=== PATIENT | male | born 1955 | race Caucasian/White ===

== ENCOUNTER 2016-11-07 07:44 | Day surgery (SDC) | payer BC ==
[2016-11-03 09:55] VITALS: BMI 34.9
[~2016-11-07 07:44] MED LIST: LACTATED RINGERS 1,000 ML IV SCH; LIDOCAINE 1% 20 ML VIAL (10MG/ML) FOR IV START INTRADERMA PRN
[2016-11-07 08:12] VITALS: TEMP 98.6
[2016-11-07] MEDS ORDERED: PROPOFOL 10 MG/ML 20 ML VIAL IV ONE (08:45)
--- NOTE | 2016-11-07 09:03 | P.PCN ---
Date of Procedure: 11/07/16 Procedure(s) Performed: Procedure: Esophagogastroduodenoscopy and biopsy. Preoperative diagnosis: History of Mcintyre's esophagus. Postoperative diagnosis: Long segment of Mcintyre's esophagus, biopsies obtained in 4 different quadrants at 2 different levels. Preparation and sedation: Was provided by anesthesia. Brief clinical history: The patient is a 61-year-old male with history of Mcintyre's esophagus. His last surveillance exam was in March 2014 and he had no evidence of dysplasia at that time. The patient does not have any symptoms and this is part of his surveillance. Procedure: With the patient on his left lateral decubitus position and after informed consent and adequate sedation, I passed the Olympus-GIF 160 video upper endoscope through the cricopharyngeus down the esophagus. The leti-GE junction was irregular and it started at around 30 cm from the incisors and the tubular esophagus continued for another 9-10 cm before we encounter a sliding hiatal hernia which measured around 2 cm. The esophagus proximal and distal to the leti-GE junction did not show any erosions or ulcers or any tumors. There were no strictures. The endoscope was then advanced to the rest of the stomach which was insufflated with air and inspected in detail including the retroflex view in the cardia. Finally the endoscope was passed through the pylorus into the duodenum. Pyloric channel, duodenal bulb, post bulbar area and descending duodenum appeared within normal limits. The stomach also appeared within normal limits. No biopsies were indicated in the duodenum or in the stomach. Then I proceeded to obtain multiple biopsies from the esophagus from 4 different quadrants at 2 different levels, 32 and 37 cm from the incisors. The patient tolerated the procedure well Plan: The patient was reassured. Will await biopsy results. I anticipate repeating this exam in 2-3 years. He will continue antireflux diet and measures. He will continue PPI therapy and his follow-up with you as planned.
[2016-11-07 09:06] VITALS: RESP 18
[2016-11-07 09:31] VITALS: BP 1313/86; PULSE 81
== END 2016-11-07 09:47 | disposition home or self-care (01) ==
LOC: ORWHC2ENDO 07:44
DX: K22.70 Barrett's esophagus without dysplasia (principal); I10 Essential (primary) hypertension; E78.5 Hyperlipidemia, unspecified; K21.9 Gastro-esophageal reflux disease without esophagitis; Z79.82 Long term (current) use of aspirin; Z79.899 Other long term (current) drug therapy
CPT/HCPCS: 88305; 43239; J2704

== ENCOUNTER 2017-07-13 19:52 | Emergency (ER) | payer BC ==
[2017-07-13 20:05] VITALS: BP 181/98; PULSE 90; RESP 16; TEMP 98.9
[2017-07-13] MEDS ORDERED: DIPH,PERTUS(ACELL)TETVAC-LF 0.5 ML VIAL IM ONE (20:56)
--- NOTE | 2017-07-13 21:07 | ED ---
Wound/Laceration HPI - General Chief Complaint: Wound/Laceration Stated Complaint: Eyebrow/Lac Time Seen by Provider: 07/13/17 20:56 Source: patient Mode of arrival: ambulatory Limitations: no limitations - History of Present Illness Initial Comments: this patient is 62-year-old man who states that he sustained a laceration to the right brow of his face while he was using a tool to clean out a laundry shoot above his head, and the tool fell striking him in the face. The patient states that he did not have loss of consciousness. He has no headache, no change in his vision, no neurologic symptoms, no neck pain or any other symptoms. Initially the patient's stated that his tetanus status was not current, but the patient subsequently remembered that he had a tetanus shot before he had taken a trip about 5 or 6 years ago. Onset/Timin -: hour(s) Location: face Place: home Patient Tetanus UTD: Yes Context: accidental Associated Symptoms: none - Related Data Home Medications Medication Instructions Recorded Confirmed Aspirin 81 mg PO DAILY 03/27/14 11/07/16 Fluticasone/Salmeterol [Advair 1 puff INHALATION BID PRN 03/27/14 11/07/16 250-50 Diskus] Hydrochlorothiazide [Hydrodiuril] 25 mg PO DAILY 03/27/14 11/07/16 Pantoprazole Sodium [Protonix] 40 mg PO DAILY 03/27/14 11/07/16 Trandolapril [Mavik] 4 mg PO DAILY 03/27/14 11/07/16 Verapamil HCl [Verapamil ER] 240 mg PO DAILY 03/27/14 11/07/16 Atorvastatin [Lipitor] 20 mg PO HS 07/13/17 07/13/17 Allergies Allergy/AdvReac Type Severity Reaction Status Date / Time No Known Allergies Allergy Verified 07/13/17 21:15 Review of Systems ROS Statement: Those systems with pertinent positive or pertinent negative responses have been documented in the HPI. ROS Other: All systems not noted in ROS Statement are negative. Constitutional: Denies: fever, chills Eyes: Denies: eye pain, vision change Neurological: Denies: headache, weakness, numbness, confusion, abnormal gait Hematological/Lymphatic: Denies: easy bleeding Past Medical History Past Medical History: Asthma, GERD/Reflux, Hyperlipidemia, Hypertension, Sleep Apnea/CPAP/BIPAP Additional Past Medical History / Comment(s): SLEEP APNEA- DOES NOT USE MACHINE. ? SPIVEY'S ESOPHAGUS History of Any Multi-Drug Resistant Organisms: None Reported Past Surgical History: No Surgical Hx Reported Additional Past Surgical History / Comment(s): COLONOSCOPY;EGD Past Anesthesia/Blood Transfusion Reactions: No Reported Reaction Past Psychological History: No Psychological Hx Reported Smoking Status: Former smoker Past Alcohol Use History: Occasional Past Drug Use History: None Reported - Past Family History Mother Family Medical History: No Reported History General Exam Limitations: no limitations General appearance: alert, in no apparent distress Eye exam: Present: normal appearance, PERRL, EOMI, other (there is an approximately 3 cm laceration to the right brow). Absent: scleral icterus, conjunctival injection Neck exam: Present: full ROM. Absent: tenderness Neurological exam: Present: alert, normal gait Skin exam: Present: warm, dry, other (laceration as above) Course Vital Signs 07/13/17 20:00 Temperature 98.9 F Pulse Rate 90 Respiratory 16 Rate Blood Pressure 181/98 O2 Sat by Pulse 96 Oximetry Procedures - Laceration Laceration #1 Consent Obtained: verbal consent Time Out Performed: Yes Indication: laceration Site: face Description: linear Depth: simple, single layer Anesthetic Used: lidocaine 1% Amount (mls): 6 Type of Sutures: nylon Size of Sutures: 6-0 Technique: simple, interrupted Patient Tolerated Procedure: well, no complications Disposition Clinical Impression: Laceration Disposition: HOME SELF-CARE Condition: Good Instructions: Care For Your Stitches (ED), Laceration (ED) Referrals: Mode Ochoa MD [Primary Care Provider] - 1-2 days
== END 2017-07-13 21:30 | disposition home or self-care (01) ==
LOC: EC 19:52
DX: S01.111A Laceration without foreign body of right eyelid and periocular area, initial encounter (principal); K21.9 Gastro-esophageal reflux disease without esophagitis; E78.5 Hyperlipidemia, unspecified; I10 Essential (primary) hypertension; Z87.891 Personal history of nicotine dependence; Z79.82 Long term (current) use of aspirin; Z79.899 Other long term (current) drug therapy; W20.8XXA Other cause of strike by thrown, projected or falling object, initial encounter
CPT/HCPCS: 12013; 99282

== ENCOUNTER 2020-03-10 07:14 | Day surgery (SDC) | payer BC ==
[2020-03-09 10:03] VITALS: BMI 32.8
[~2020-03-10 07:14] MED LIST changes: +LIDOCAINE 1% (10MG/ML) FOR IV START INTRADERMA PRN; -LIDOCAINE 1% 20 ML VIAL (10MG/ML) FOR IV START INTRADERMA PRN
[2020-03-10 07:37] VITALS: RESP 16; TEMP 96.6
[2020-03-10 07:48] LABS: Glucose,Whole Blood 172 mg/dL (75-99)
[2020-03-10] MEDS ORDERED: LIDOCAINE 1% INJ 10MG/ML (20 ML MDV) ONE (07:57)
[2020-03-10] MEDS ORDERED: PROPOFOL 10 MG/ML 20 ML VIAL IV ONE (07:57)
[2020-03-10] MEDS ORDERED: IV FLUID CONTINUATION 1,000 ML IV ONE (08:22)
--- NOTE | 2020-03-10 08:30 | P.PCN ---
Date of Procedure: 03/10/20 Description of Procedure: BRIEF HISTORY: Patient is a 64-year-old male with a medical history significant for Mcintyre's esophagus presenting for esophagogastroduodenoscopy. Last EGD in 2017 with no dysplasia noted. Patient is on Protonix therapy and denies any breakthrough reflux, dysphagia or other symptoms. PROCEDURE PERFORMED: Esophagogastroduodenoscopy with biopsy. PREOPERATIVE DIAGNOSIS: Mcintyre's esophagus. ESTIMATED BLOOD LOSS: Minimal. IV sedation per anesthesia. PROCEDURE: After informed consent was obtained, the patient was brought into the endoscopy unit. IV sedation was administered by Anesthesia under continuous monitoring. Initially the Olympus GIF-190 video endoscope was inserted into the mouth. Esophagus intubated without any difficulty. It was gradually advanced into the stomach and duodenum and carefully examined. The bulb and the second part of the duodenum appeared normal, with biopsies taken. The scope at this time was withdrawn to the stomach, adequately insufflated with air, and upon careful examination, mucosa of the antrum, body, cardia and the fundus appeared normal, except for some mild punctate erythema in the antrum and body suggestive of mild gastritis with biopsies taken. The scope was then withdrawn into the esophagus. The GE junction was located at 38 cm from the incisors, with a 2 cm hiatal hernia noted. Diminutive 2 mm polyp in the hiatal hernia sac biopsied 39 centimeters from the incisors. The esophagus was significant for 10 cm of Mcintyre's esophagus from 28 cm from the incisors to 38 cm from the incisors, with multiple biopsies taken in all 4 quadrants. Patient tolerated the procedure well. IMPRESSION: 1. Long segment Mcintyre's esophagus, biopsied. 2. Small hiatal hernia. 3. Diminutive polyp in the hiatal hernia sac, suspicion for fundic gland polyp, however biopsies taken in the setting of Mcintyre's to rule out dysplasia, located 39 cm from the incisors. 4. Mild gastritis antrum and body, biopsied. 5. Duodenal biopsies. RECOMMENDATIONS: The findings of this examination were discussed with the patient. Okay to resume diet. Continue Protonix therapy. Await pathology from biopsies. Follow up in GI clinic in 2 weeks for results of biopsies.
[2020-03-10 08:39] VITALS: BP 199/77; PULSE 68
== END 2020-03-10 08:56 ==
LOC: ORWHC2ENDO 07:14
PROVIDERS: ATTEND Internal Medicine
DX: K22.70 Barrett's esophagus without dysplasia (principal); K44.9 Diaphragmatic hernia without obstruction or gangrene; K29.50 Unspecified chronic gastritis without bleeding; K31.7 Polyp of stomach and duodenum; K21.9 Gastro-esophageal reflux disease without esophagitis; I10 Essential (primary) hypertension; E78.5 Hyperlipidemia, unspecified; G47.33 Obstructive sleep apnea (adult) (pediatric); E11.9 Type 2 diabetes mellitus without complications; Z87.891 Personal history of nicotine dependence; Z79.84 Long term (current) use of oral hypoglycemic drugs; Z79.899 Other long term (current) drug therapy; Z79.82 Long term (current) use of aspirin; Z79.51 Long term (current) use of inhaled steroids; Z98.890 Other specified postprocedural states; Z82.69 Family history of other diseases of the musculoskeletal system and connective tissue
CPT/HCPCS: 43239; J2001; J2704; 88305

== ENCOUNTER 2022-09-23 05:55 | Day surgery (SDC) | payer BC ==
[2022-09-22 08:35] VITALS: BMI 35.5
[2022-09-23] MEDS ORDERED: LACTATED RINGERS 1,000 ML IV SCH (06:18)
[2022-09-23] MEDS ORDERED: LACTATED RINGERS 1,000 ML IV ONE (06:20)
[2022-09-23 06:40] LABS: Glucose,Whole Blood 129 mg/dL (70-110)
[2022-09-23 06:41] VITALS: TEMP 97.2
[2022-09-23] MEDS ORDERED: LIDOCAINE 2% INJ 20 MG/ML (2 ML VIAL) ONE (07:00)
[2022-09-23] MEDS ORDERED: PROPOFOL 10 MG/ML 20 ML VIAL IV ONE (07:00)
--- NOTE | 2022-09-23 07:28 | P.PCN ---
Date of Procedure: 09/23/22 Procedure(s) Performed: Brief history: Patient is a pleasant 67-year-old white male scheduled for an elective upper endoscopy as well as colonoscopy as a part of evaluation of GERD/Mcintyre's esophagus/screening for colon cancer Procedure performed: Esophagogastroduodenoscopy with biopsy Colonoscopy with snare polypectomy Preoperative diagnosis: GERD/Mcintyre's esophagus Screening for colon cancer Anesthesia: MAC Procedure: After informed consent was obtained from the patient was brought into the end oscopy unit and IV sedation was administered by anesthesia under continuous monitoring. Initially upper endoscopy was done. The Olympus GF 160 video endoscope was inserted inserted into the mouth and esophagus intubated without any difficulty and was gradually advanced into the stomach and duodenum and carefully examined. The bulb and second part of the duodenum appeared normal. The scope was then withdrawn into the stomach adequately insufflated with air and upon careful examination the antrum and body, cardia and fundus appeared normal. Few polyps noted in the stomach that was biopsied. The scope was then withdrawn into the esophagus. The GE junction was located at 38 cm to the incisors. Small hiatal hernia noted. There was long segment of Mcintyre's esophagus extending from 30-38 cm from the incisors and multiple biopsies were done from this area. Rest of the esophagus appeared normal. Patient tolerated the procedure well. At this time the patient continued to remain sedation. Initial digital rectal examination was normal. Olympus CF 160 video colonoscope was then inserted into the rectum and gradually advanced to the cecum without any difficulty. Careful examination was performed as the scope was gradually being withdrawn. The prep was excellent. The cecum, appeared normal. In the ascending colon there was a 6 mm sessile polyp removed by snare polypectomy. Rest of the ascending colon, transverse colon, descending colon, sigmoid colon and rectum appeared normal. The left sided diverticulosis. Retroflexion was performed in the rectum and no lesions were noted. Patient tolerated the procedure well. Impression: 1. Upper endoscopy revealed long segment Mcintyre's esophagus, small gastric polyps and small hiatal hernia 2. Colonoscopy revealed a 6 mm ascending colon polyp status post polypectomy and scattered sigmoid diverticulosis Recommendations: Findings of this examination were discussed with the patient as well as his family. He was advised to follow with the biopsy results. If the biopsy confirms the presence of Mcintyre's esophagus he can have a repeat upper endoscopy in 3 years. Repeat colonoscopy in 5 years. In the meantime he will continue with Protonix 40 mg daily and follow antireflux measures.
[2022-09-23 07:47] VITALS: BP 154/78; PULSE 78; RESP 20
== END 2022-09-23 08:23 | disposition home or self-care (01) ==
LOC: ORWHC2ENDO 05:55
PROVIDERS: ATTEND Internal Medicine Gastroenterology
DX: Z12.11 Encounter for screening for malignant neoplasm of colon (principal); K22.70 Barrett's esophagus without dysplasia; D12.2 Benign neoplasm of ascending colon; K31.7 Polyp of stomach and duodenum; K44.9 Diaphragmatic hernia without obstruction or gangrene; K57.30 Diverticulosis of large intestine without perforation or abscess without bleeding; K21.9 Gastro-esophageal reflux disease without esophagitis
CPT/HCPCS: 88305; 45385; 43239; J2704; J2001

== ENCOUNTER 2023-12-27 12:45 | Day surgery (SDC) | payer BC, MEDICARE ==
[2023-12-27 14:42] VITALS: BP 165/91; PULSE 78; RESP 18; TEMP 98.1
--- NOTE | 2023-12-27 15:47 | US ---
EXAMINATION TYPE: US discontinued FNA panel DATE OF EXAM: 12/27/2023 2:43 PM CLINICAL INDICATION:Male, 68 years old with history of R22.31; COMPARISON: Outside ultrasound 12/06/2023 ATTENDING: Dr. Meléndez FINDINGS AND IMPRESSION: Initial scanning was performed at the patient's palpable site within the right axilla. Protuberant 6. 3 x 2.9 cm oval area is identified. However, when turning the transducer, this elongates and is yanna tible with normal underlying musculature. Images of the contralateral side were obtained for comparis on purposes and appear similar. Additional scanning more inferior (away from the palpable site) shows a prominent but benign axillary lymph node measuring 3.0 x 1.1 cm. This demonstrates uniformly thin, nearly imperceptible cortex. Th is was described to be the echogenic mass on outside ultrasound. As it has benign features and does n ot correspond to the palpable site, biopsy is not performed here. The current exam shows no discrete target for biopsy. Recommend clinical surveillance follow-up. If there is any enlarging palpable area, the patient can b e rescanned or a CT (with palpable marker) can be obtained for more global assessment. Findings and impression are discussed with the patient.
== END 2023-12-27 14:50 | disposition home or self-care (01) ==
LOC: RADPROMAIN 12:45
PROVIDERS: ATTEND Family Medicine
DX: Z53.8 Procedure and treatment not carried out for other reasons (principal); R22.31 Localized swelling, mass and lump, right upper limb
CPT/HCPCS: 76536